=== PATIENT | female | born 1970 | race Asian ===

== ENCOUNTER 2016-10-19 21:50 | Emergency (ER) | payer SELFPAY ==
[~2016-10-19] VITALS: Ht 162.6 cm; Wt 49.5 kg
[2016-10-19 21:53] VITALS: Ht 162.6 cm; Wt 49.5 kg
[2016-10-19] MEDS ORDERED: SOD CHLORIDE 0.9% 500 ML IV STA (23:42)
[2016-10-19 23:46] LABS: URINE BLOOD (Dip) POC 3+ (NEGATIVE)
[2016-10-20 00:26] LABS: ADD SCAN DIFF NO
[2016-10-20 00:30] LABS: BASOPHIL # 0.1 10^3/ul (0.0-0.1); BASOPHILS % 0.6 % (0.0-2.0); EOSINOPHILS # 0.3 10^3/ul (0.0-0.5); EOSINOPHILS % 2.6 % (0.0-7.0); HEMATOCRIT 42.9 % (37.0-47.0); HEMOGLOBIN 15.1 g/dl (12.0-16.0); LYMPHOCYTES # 2.6 10^3/ul (0.8-2.9); LYMPHOCYTES % 26.5 % (15.0-51.0); MEAN CORPUSCULAR HEMOGLOBIN 31.8 pg (29.0-33.0); MEAN CORPUSCULAR HGB CONC 35.2 g/dl (32.0-37.0); MEAN CORPUSCULAR VOLUME 90.3 fl (82.0-101.0); MEAN PLATELET VOLUME 9.2 fl (7.4-10.4); MONOCYTE # 0.6 10^3/ul (0.3-0.9); MONOCYTES % 5.6 % (0.0-11.0); NEUTROPHIL # 6.3 10^3/ul (1.6-7.5); NEUTROPHILS % 64.5 % (39.0-77.0); PLATELET COUNT 323 10^3/UL (140-415); RED BLOOD COUNT 4.75 10^6/ul (4.20-5.40); WHITE BLOOD COUNT 9.8 10^3/ul (4.8-10.8)
[2016-10-20 00:46] LABS: INR 0.86; PROTIME 11.7 Sec (12.2-14.2); PT RATIO 0.9
[2016-10-20 00:47] LABS: ANION GAP 16 (8-16); BLOOD UREA NITROGEN 16 mg/dl (7-20); CALCIUM 9.6 mg/dl (8.4-10.2); CARBON DIOXIDE 26 mmol/L (21-31); CHLORIDE 103 mmol/L (97-110); CREATININE 0.67 mg/dl (0.44-1.00); GLUCOSE 115 mg/dl (70-220); PARTIAL THROMBOPLASTIN TIME 32.9 Sec (25.0-35.0); POTASSIUM 3.2 mmol/L (3.5-5.1); SODIUM 142 mmol/L (135-144)
--- NOTE | 2016-10-20 00:53 | RADRPT ---
PROCEDURE: Portable chest x-ray. CLINICAL INDICATION: Chest pain. TECHNIQUE: Portable AP view of the chest. COMPARISON: None. FINDINGS: No pulmonary edema or conolidation is identified. The cardiac silhouette is magnified. No pleural effusion is seen. There is no pneumothorax. IMPRESSION: 1. No evidence of acute cardiopulmonary disease. RPTAT: HTAR .Garland Nichols MD, MD Date Time Electronically viewed and signed by .Garland Nichols MD, on 10/20/2016 00:53 .R/
--- NOTE | 2016-10-20 01:11 | RADRPT ---
PROCEDURE: CT head, without contrast. CLINICAL INDICATION: Patient experiencing headache. TECHNIQUE: Noncontrast CT examination of the head, with axial, sagittal and coronal reformatted im ages. Automated dose exposure control was employed. CTDI: 45.01 and DLP: 720.23. COMPARISON: None. FINDINGS: No acute hemorrhage. Subarachnoid spaces are substantially preserved and symmetric. Ventricles ar e unremarkable. No mass effect. Ramirez-white matter distinction is preserved without evident decreased attenuation t o suggest acute or recent infarct. Sinuses and osseous structures are unremarkable. IMPRESSION: No acute process in the head. RPTAT: [facility] Physician Natasha Date Time Electronically viewed and signed by Physician Natasha on 10/20/2016 01:11 RS/
[2016-10-20 01:30] LABS: TROPONIN-I < 0.012 ng/ml (0.00-0.12)
[2016-10-20] MEDS ORDERED: ACET-141 PO (01:35)
[2016-10-20] MEDS ORDERED: MULT-762 PO (01:35)
[2016-10-20] MEDS ORDERED: IBUP100T46 PO (01:35)
[2016-10-20 01:45] VITALS: BP 132/88; PULSE 83; RESP 18
--- NOTE | 2016-10-20 02:09 | ERD ---
ER Documentation Chief Complaint Date/Time DATE: 10/20/16 TIME: 02:08 Chief Complaint hypertension since yesterday, numbness of L arm, L leg, neck pain 3 hrs ago HPI Supportive erythematous had hypertension since yesterday. She has noticed some numbness of her arm and leg and neck pain 3 hours ago. She denies any focal neurological complaints. She said she has had this numbness before when her blood pressures been elevated. She denies any visual acuity changes. She denies any current issues. ROS All systems reviewed and are negative except as per history of present illness. Medications Home Meds Reported Medications Multivitamin (MULTI-VITAMIN DAILY) 1 Each Tablet, 1 TAB PO DAILY, TAB 10/20/16 Acetaminophen* (Acetaminophen*) 500 MG Extra Strength Tablet, 500 MG PO Q4H Y for PAIN AND OR ELEVATED TEMP, TAB 10/20/16 Ibuprofen* (Ibuprofen*) 100 Mg Tab.chew, 200 MG PO Q6, TAB.CHEW 10/20/16 Allergies Allergies: Coded Allergies: No Known Allergy (Unverified , 10/19/16) PMhx/Soc Medical and Surgical Hx: pt denies Medical Hx, pt denies Surgical Hx History of Surgery: No Anesthesia Reaction: No Hx Neurological Disorder: No Hx Respiratory Disorders: No Hx Cardiac Disorders: No Hx Psychiatric Problems: No Hx Miscellaneous Medical Probl: No Hx Alcohol Use: Yes (occasio) Hx Substance Use: No Hx Tobacco Use: No Smoking Status: Never smoker Physical Exam Vitals Vital Signs Date Time Temp Pulse Resp B/P Pulse Ox O2 Delivery O2 Flow Rate FiO2 10/20/16 01:45 83 18 132/88 100 Room Air 10/20/16 00:00 90 16 157/99 100 Room Air 10/19/16 21:53 98.3 96 20 169/87 98 Physical Exam Const: [] Head: Atraumatic Eyes: Normal Conjunctiva ENT: Normal External Ears, Nose and Mouth. Neck: Full range of motion..~ No meningismus. Resp: Clear to auscultation bilaterally Cardio: Regular rate and rhythm, no murmurs Abd: Soft, non tender, non distended. Normal bowel sounds Skin: No petechiae or rashes Back: No midline or flank tenderness Ext: No cyanosis, or edema Neur: Awake and alert Psych: Normal Mood and Affect Result Diagram: 10/20/16 0005 10/20/16 0005 Results 24 hrs Laboratory Tests Test 10/19/16 23:49 10/20/16 00:05 Bedside Urine pH (LAB) 7.0 Bedside Urine Protein (LAB) 1+ Bedside Urine Glucose (UA) Negative Bedside Urine Ketones (LAB) Negative Bedside Urine Blood 3+ Bedside Urine Nitrite (LAB) Negative Bedside Urine Leukocyte Esterase (L Trace White Blood Count 9.810^3/ul Red Blood Count 4.7510^6/ul Hemoglobin 15.1g/dl Hematocrit 42.9% Mean Corpuscular Volume 90.3fl Mean Corpuscular Hemoglobin 31.8pg Mean Corpuscular Hemoglobin Concent 35.2g/dl Red Cell Distribution Width 12.0% Platelet Count 23913^3/UL Mean Platelet Volume 9.2fl Neutrophils % 64.5% Lymphocytes % 26.5% Monocytes % 5.6% Eosinophils % 2.6% Basophils % 0.6% Nucleated Red Blood Cells % 0.0/100WBC Neutrophils # 6.310^3/ul Lymphocytes # 2.610^3/ul Monocytes # 0.610^3/ul Eosinophils # 0.310^3/ul Basophils # 0.110^3/ul Nucleated Red Blood Cells # 0.010^3/ul Prothrombin Time 11.7Sec Prothrombin Time Ratio 0.9 INR International Normalized Ratio 0.86 Activated Partial Thromboplast Time 32.9Sec Sodium Level 142mmol/L Potassium Level 3.2mmol/L Chloride Level 103mmol/L Carbon Dioxide Level 26mmol/L Anion Gap 16 Blood Urea Nitrogen 16mg/dl Creatinine 0.67mg/dl Glucose Level 115mg/dl Calcium Level 9.6mg/dl Troponin I < 0.012ng/ml Current Medications Medications (Trade) Dose Ordered Sig/Candelaria Route PRN Reason Start Time Stop Time Status Last Admin Dose Admin Sodium Chloride (NS) 500 ml @ 500 mls/hr Q1H STAT IV 10/19/16 23:42 10/20/16 00:41 DC 10/20/16 01:10 Procedures/MDM EKG: Rate/Rhythm: Normal Sinus Rhythm QRS, ST, T-waves: No changes consistent w/ acute ischemia Impression: No evidence of ischemia or arrhythmia Chest X-ray 1V Interpreted by me: Soft Tissue: No acute abnormalities Bones: No acute abnormalities Mediastinum/Cardiac Silhouette/Lungs: No acute abnormalities Patient's blood pressure was elevated (>120/80) but appears stable without evidence of hypertension emergency or urgency. The patient was counseled about the risks of hypertension and urged to pursue outpatient monitoring and therapy within a week with their primary care physician. Departure Diagnosis: Primary Impression: Hypertension Hypertension type: essential hypertension Qualified Code: I10 - Essential hypertension Condition: Stable Patient Instructions: High Blood Pressure (Hypertension) LORNE SALMON Oct 20, 2016 02:09
== END 2016-10-20 02:45 | disposition home or self-care (01) ==
LOC: E/R 21:50
DX: I10 Essential (primary) hypertension (principal); R07.9 Chest pain, unspecified; R51 Headache
CPT/HCPCS: 36415; 70450; 71010; 80048; 81003; 84484; 85025; 85610; 85730; 93005; 99285; J7040